=== PATIENT | female | born 1945 ===

== ENCOUNTER 2019-01-06 15:05 | Outpatient (CLI) | payer OTHER ==
[~2019-01-06] VITALS: Ht 162.6 cm; Wt 63.5 kg
== END 2019-01-06 15:20 | disposition home or self-care (01) ==
LOC: OFIC 805 15:05
DX: R05 Cough (principal); J30.89 Other allergic rhinitis

== ENCOUNTER 2021-05-01 09:22 | Outpatient (CLI) | payer OTHER | END 2021-05-01 09:30 | disposition home or self-care (01) | LOC: MAMO-SONO 09:22 → SONOGRAMA 09:22 → MAMO-SONO 10:15 | PROVIDERS: ATTEND Specialist | DX: D17.1 Benign lipomatous neoplasm of skin and subcutaneous tissue of trunk (principal) ==